=== PATIENT | male | born 1980 | race Caucasian/White ===

== ENCOUNTER 2017-04-15 13:34 | Emergency (ER) | payer SELFPAY ==
[~2017-04-15] VITALS: Ht 182.9 cm; Wt 72.6 kg
== END 2017-04-15 13:59 | disposition left against medical advice (07) ==
LOC: ER 13:34
DX: Z53.21 Procedure and treatment not carried out due to patient leaving prior to being seen by health care provider (principal)
CPT/HCPCS: A4663

== ENCOUNTER 2017-10-25 13:46 | Emergency (ER) | payer SELFPAY ==
[~2017-10-25] VITALS: Ht 182.9 cm; Wt 72.6 kg
[2017-10-25] MEDS ORDERED: TDAP DIPH,PERTUSS,TET VAC/PF 0.5 ML DISP.SYRIN IM ONE ×2 (14:10→14:15)
--- NOTE | 2017-10-25 14:26 | NUR ---
PATIENT WAS SEEN BY GEORGE. IMMUNIZATION GIVEN ORDERED. HE TOLERATED IT WELL. DC, AND FOLLOW UP INSTRUCTIONS GIVEN AND EXPLAINED TO PATIENT WHO STATES HE UNDERSTANDS ALL INSTRUCTIONS.
--- NOTE | 2017-10-25 14:28 | NUR ---
I ASKED HIM IF HE IS HOMELESS AND HE STATED TEMPORARILY. I ASKED IF HE WANTS ASSISTANCE WITH ALF AND HE SAID NOT NOW. I GAVE HIM FOOD AND JUICE AND TOILETRIES.
== END 2017-10-25 14:30 | disposition home or self-care (01) ==
LOC: ER 13:47
DX: S91.331A Puncture wound without foreign body, right foot, initial encounter (principal); Z59.0 Homelessness; W45.0XXA Nail entering through skin, initial encounter; Y93.89 Activity, other specified; Y92.89 Other specified places as the place of occurrence of the external cause; Y99.8 Other external cause status
CPT/HCPCS: 90715; A4663

== ENCOUNTER 2017-11-16 15:30 | Emergency (ER) | payer SELFPAY ==
[~2017-11-16] VITALS: Ht 182.9 cm; Wt 77.1 kg
--- NOTE | 2017-11-16 15:40 | NUR ---
PATIENT WAS MSE BY DR NEWMAN IN ROOM 02A.
[2017-11-16] MEDS ORDERED: SULFAMETH/TRIMETH 800/160 MG TABLET PO ONE (15:45)
[2017-11-16] MEDS ORDERED: SULFAMETH/TRIMETH 800/160 MG TABLET ONE (15:49)
[2017-11-16 15:57] VITALS: BP 144/93
--- NOTE | 2017-11-16 15:58 | NUR ---
Patient given written and verbal discharge instructions. Patient verbalizes understanding of instructions. Patient is ambulatory with steady gait. Refuses offer of detention placement. Patient given list of available shelters in surrounding area.
== END 2017-11-16 15:58 | disposition home or self-care (01) ==
LOC: ER 15:31
DX: L03.113 Cellulitis of right upper limb (principal); F17.210 Nicotine dependence, cigarettes, uncomplicated; Z59.0 Homelessness
CPT/HCPCS: A4663

== ENCOUNTER 2017-11-18 15:51 | Emergency (ER) | payer MEDICAID ==
[~2017-11-18] VITALS: Ht 182.9 cm; Wt 74.8 kg
--- NOTE | 2017-11-18 16:29 | NUR ---
Patient discharged to home in stable conditon. Written and verbal after care instructions given. Patient verbalizes understanding of instructions. Pt was given a Rx for Bactrim but pt left before first dose could be given in ER.
[2017-11-18] MEDS ORDERED: SULFAMETH/TRIMETH 800/160 MG TABLET PO ONE (16:30)
== END 2017-11-18 16:31 | disposition home or self-care (01) ==
LOC: ER 15:58
DX: L03.113 Cellulitis of right upper limb (principal); F17.210 Nicotine dependence, cigarettes, uncomplicated; Z59.0 Homelessness
CPT/HCPCS: A4663

== ENCOUNTER 2021-03-17 19:43 | Emergency (ER) | payer SELFPAY ==
[~2021-03-17] VITALS: Ht 182.9 cm; Wt 68.0 kg
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
--- NOTE | 2021-03-17 20:00 | NUR ---
Dr. monge at bedside, MSE in progress.
--- NOTE | 2021-03-17 20:25 | NUR ---
Russell dinhsamira in ED - 03/17/21 at 2135 by BOBBY PT WANTED TO TALK TO HIS "DAD" IN THE WAITING ROOM BUT EXPLAINED THAT HE CANNOT GO OUT OF THE ER WHILE HE IS HERE, NOTED TO BE UNCOOPERATIVE AND REFUSED INSTRUCTIONS. DESPITE EXPLAINING RISK PATIENT STILL WENT OUT IN THE WAITING ROOM TO SPEAK WITH HIS "DAD". PT WAS SUPERVISED AND RETURNED TO HIS ROOM IN 4B.
[2021-03-17] MEDS ORDERED: KETOROLAC TROMETHAMINE 60 MG INJ IM ONE ×2 (20:30→20:37)
--- NOTE | 2021-03-17 20:36 | NUR ---
XRAY AT BEDSIDE.
--- NOTE | 2021-03-17 20:45 | NUR ---
PT TAKEN DOWN FOR CT.
--- NOTE | 2021-03-17 21:05 | NUR ---
PT RETURNED FROM CT, STABLE CONDITION.
--- NOTE | 2021-03-17 21:25 | NUR ---
PT WANTED TO TALK TO HIS "DAD" IN THE WAITING ROOM BUT EXPLAINED THAT HE CANNOT GO OUT OF THE ER WHILE HE IS HERE, NOTED TO BE UNCOOPERATIVE AND REFUSED INSTRUCTIONS. DESPITE EXPLAINING RISK PATIENT STILL WENT OUT IN THE WAITING ROOM TO SPEAK WITH HIS "DAD". PT WAS SUPERVISED AND RETURNED TO HIS ROOM IN 4B.
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
[2021-03-17] MEDS ORDERED: NAPR-1164 PO (22:09)
--- NOTE | 2021-03-17 22:17 | NUR ---
Patient given written and verbal discharge instructions. Patient verbalizes understanding of instructions. Patient is ambulatory with steady gait. Refuses offer of [facility] placement. Patient given list of available shelters in surrounding area. No SOB or labored breathing. Denies pain/discomfort. Steady gait.
[2021-03-17 22:24] VITALS: BP 117/76
== END 2021-03-17 22:24 | disposition home or self-care (01) ==
LOC: ER 19:47
DX: M25.511 Pain in right shoulder (principal); M54.2 Cervicalgia; M25.562 Pain in left knee; Z59.0 Homelessness; R20.0 Anesthesia of skin
CPT/HCPCS: 70450; 71045; 72125; 73030; 73080; 73564; 96372; 99285; J1885; A4663

== ENCOUNTER 2021-11-06 17:51 | Emergency (ER) | payer SELFPAY ==
[~2021-11-06] VITALS: Ht 182.9 cm; Wt 72.6 kg
[~2021-11-06 17:51] MED LIST: NAPR-1164 PO
--- NOTE | 2021-11-06 18:01 | NUR ---
Patient given written and verbal discharge instructions. Patient verbalizes understanding of instructions. Patient is ambulatory with steady gait. Refuses offer of [facility] placement. Patient given list of available shelters in surrounding area.
[2021-11-06] MEDS ORDERED: SULF1TAB48 PO ×2 (18:19→18:21)
[2021-11-06] MEDS ORDERED: CEPH500C2 PO ×2 (18:19→18:21)
[2021-11-06] MEDS ORDERED: IBUP-1955 PO (18:21)
== END 2021-11-06 18:23 | disposition home or self-care (01) ==
LOC: ER 17:56
DX: L03.116 Cellulitis of left lower limb (principal); R00.0 Tachycardia, unspecified; Z59.00 Homelessness unspecified; R03.0 Elevated blood-pressure reading, without diagnosis of hypertension
CPT/HCPCS: A4663

== ENCOUNTER 2022-06-30 20:35 | Emergency (ER) | payer SELFPAY ==
[~2022-06-30 20:35] MED LIST changes: +CEPH500C2 PO; +IBUP-1955 PO; +SULF1TAB48 PO
--- NOTE | 2022-07-01 02:33 | NUR ---
Patient left without being seen. Not in waiting room when called or outside ED area.
== END 2022-07-01 02:34 | disposition left against medical advice (07) ==
LOC: ER 20:39
DX: Z53.21 Procedure and treatment not carried out due to patient leaving prior to being seen by health care provider (principal)

== ENCOUNTER 2024-02-13 15:10 | Emergency (ER) | payer SELFPAY ==
[~2024-02-13] VITALS: Ht 182.9 cm; Wt 73.9 kg
[~2024-02-13 15:10] MED LIST changes: +HYDR-3980 PO; +ONDA4TAB5 PO
[2024-02-13 15:23] VITALS: O2SAT 100
== END 2024-02-13 17:53 | disposition left against medical advice (07) ==
LOC: ER 15:11
DX: M54.2 Cervicalgia (principal); Z53.21 Procedure and treatment not carried out due to patient leaving prior to being seen by health care provider
CPT/HCPCS: A4606; A4663

== ENCOUNTER 2024-03-10 20:29 | Emergency (ER) | payer SELFPAY ==
[~2024-03-10] VITALS: Ht 182.9 cm; Wt 72.6 kg
[2024-03-10] MEDS ORDERED: NAPR-1009 PO (21:14)
[2024-03-10] MEDS ORDERED: CYCL10TA9 PO (21:14)
[2024-03-10 21:37] VITALS: BP 124/80; TEMP 98; O2SAT 100
== END 2024-03-10 21:37 | disposition home or self-care (01) ==
LOC: ER 20:31
DX: G89.29 Other chronic pain (principal); M54.2 Cervicalgia; M72.2 Plantar fascial fibromatosis; M79.672 Pain in left foot; M79.671 Pain in right foot; F17.200 Nicotine dependence, unspecified, uncomplicated; Z79.1 Long term (current) use of non-steroidal anti-inflammatories (NSAID); Z79.891 Long term (current) use of opiate analgesic; Z79.899 Other long term (current) drug therapy
CPT/HCPCS: A4606; A4663

== ENCOUNTER 2024-04-04 18:03 | Emergency (ER) | payer SELFPAY ==
[~2024-04-04] VITALS: Ht 182.9 cm; Wt 72.6 kg
[~2024-04-04 18:03] MED LIST changes: +CYCL10TA9 PO; +NAPR-1009 PO
--- NOTE | 2024-04-04 18:22 | NUR ---
FIRST ATTEMPT TO CALL PT. PT IS NOT PRESENT IN THE WAITING ROOM.
[2024-04-04 18:33] VITALS: O2SAT 99
--- NOTE | 2024-04-04 18:36 | NUR ---
2ND CALL, PT IN THE WAITING ROOM. TRIAGE AND ED ASSESSMENT PERFORMED. PT PLACED IN ROOM 5A.
[2024-04-04] MEDS ORDERED: SULF1TAB48 PO (18:52)
[2024-04-04] MEDS: SULFAMETH/TRIMETH 800/160 MG TABLET PO ONE (18:57)
== END 2024-04-04 18:58 | disposition left against medical advice (07) ==
LOC: ER 18:11
DX: G89.29 Other chronic pain (principal); F17.210 Nicotine dependence, cigarettes, uncomplicated; Z79.1 Long term (current) use of non-steroidal anti-inflammatories (NSAID); Z79.899 Other long term (current) drug therapy; Z79.891 Long term (current) use of opiate analgesic; Z59.00 Homelessness unspecified
CPT/HCPCS: A4606; A4663

== ENCOUNTER 2024-09-04 05:05 | Emergency (ER) | payer SELFPAY ==
[~2024-09-04] VITALS: Ht 182.9 cm; Wt 81.6 kg
[2024-09-04 05:13] VITALS: O2SAT 95
== END 2024-09-04 07:03 | disposition left against medical advice (07) ==
LOC: ER 05:05
DX: M79.603 Pain in arm, unspecified (principal); Z53.21 Procedure and treatment not carried out due to patient leaving prior to being seen by health care provider
CPT/HCPCS: A4606; A4663

== ENCOUNTER 2024-09-04 11:23 | Emergency (ER) | payer SELFPAY | END 2024-09-04 13:02 | disposition left against medical advice (07) | LOC: ER 11:23 | DX: M79.603 Pain in arm, unspecified (principal); Z53.21 Procedure and treatment not carried out due to patient leaving prior to being seen by health care provider ==

== ENCOUNTER 2024-09-15 15:41 | Emergency (ER) | payer SELFPAY ==
[~2024-09-15] VITALS: Ht 172.7 cm; Wt 72.6 kg
[2024-09-15 16:46] LABS: BASOPHILS % (AUTO) 0.1 % (0.0-2.0); EOSINOPHILS % (AUTO) 0.1 % (0.0-7.0); HEMATOCRIT 33.1 % (36.7-47.1); HEMOGLOBIN 10.8 g/dL (12.5-16.3); LYMPHOCYTES # (AUTO) 0.9 K/uL (0.8-4.8); LYMPHOCYTES % (AUTO) 6.3 % (20.5-51.5); MEAN CORPUSCULAR HEMOGLOBIN 31.3 uug (23.8-33.4); MEAN CORPUSCULAR HGB CONC 33 g/dL (32.5-36.3); MEAN CORPUSCULAR VOLUME 95.6 fL (73.0-96.2); MONOCYTES # (AUTO) 0.9 K/uL (0.1-1.30); MONOCYTES % (AUTO) 6.4 % (0.0-11.0); NEUTROPHILS # (AUTO) 12.8 K/uL (1.8-8.9); NEUTROPHILS % (AUTO) 87.1 % (38.5-71.5); PLATELET COUNT (AUTO) 293 K/uL (152-348); RED BLOOD CELL COUNT(AUTO) 3.46 MIL/uL (4.06-5.63); RED CELL DISTRIBUTION WIDTH 13.7 % (12.1-16.2); WHITE BLOOD COUNT (AUTO) 14.7 K/uL (3.6-10.2)
[2024-09-15 16:47] LABS: DIFFERENTIAL COMMENT 1
[2024-09-15 16:52] LABS: CALCIUM 8.6 mg/dL (8.5-10.1); CREATININE 0.9 mg/dL (0.6-1.3); POTASSIUM 3.9 mmol/L (3.5-5.1)
[2024-09-15] MEDS ORDERED: LIDOCAINE 2%-EPI 1:100,000 20 ML VIAL ONE (16:52)
[2024-09-15 16:57] LABS: ALBUMIN 3.4 g/dL (3.4-5.0); BILIRUBIN,TOTAL 0.3 mg/dL (0.2-1.0); TOTAL PROTEIN, SERUM 6.8 g/dL (6.4-8.2)
[2024-09-15] MEDS: LIDOCAINE 1%-EPI 1:100,000 20 ML VIAL IJ ONE (17:00)
[2024-09-15] MEDS: PIPERACILLIN SODIUM/TAZOBACTAM 3.375 G in IV DEXTROSE 5% 50 ML IV ONE (17:15)
[2024-09-15] MEDS ORDERED: PIPERACILLIN/TAZOBACTAM/D5W 50 ML IV ONE (17:19)
[2024-09-15] MEDS ORDERED: LORAZEPAM 2 MG/1 ML VIAL IV ONE (19:15)
[2024-09-15] MEDS ORDERED: diphenhydrAMINE 50 MG/1 ML VIAL IV ONE (19:15)
[2024-09-15] MEDS ORDERED: LORAZEPAM 2 MG/1 ML VIAL IM ONE (19:30)
[2024-09-15] MEDS ORDERED: diphenhydrAMINE 50 MG/1 ML VIAL IM ONE (19:30)
[2024-09-15 20:27] LABS: ETHANOL < 3 MG/DL (0-10)
[2024-09-16 00:49] VITALS: BP 112/66; TEMP 98.7; O2SAT 98
== END 2024-09-16 00:54 | disposition left against medical advice (07) ==
LOC: ER 15:41
DX: S31.113A Laceration without foreign body of abdominal wall, right lower quadrant without penetration into peritoneal cavity, initial encounter (principal); M25.531 Pain in right wrist; M79.631 Pain in right forearm; F12.90 Cannabis use, unspecified, uncomplicated; F17.200 Nicotine dependence, unspecified, uncomplicated; Z59.00 Homelessness unspecified; W26.8XXA Contact with other sharp object(s), not elsewhere classified, initial encounter; Y93.89 Activity, other specified; Y92.89 Other specified places as the place of occurrence of the external cause; Y99.8 Other external cause status
CPT/HCPCS: 80053; 85025; 85730; 36415; 73090; 73100; 74176; 99284; 80320; J2543; A4606; A4663; G0480